=== PATIENT | male | born 1945 | race Caucasian/White ===

== ENCOUNTER 2022-09-10 07:31 | Day surgery (SDC) | payer MEDICARE ==
[2022-09-10] MEDS: Dextrose 5%-Lactated Ringers 1,000 ML IV SCH ×3 (08:16→22:48)
[2022-09-10] MEDS ORDERED: Glycopyrrolate 0.2 MG/ML 5 ML MDV ONE (08:18)
[2022-09-10] MEDS ORDERED: Propofol 200 MG/20 ML SDV ONE (08:18)
[2022-09-10] MEDS ORDERED: Rocuronium 50 MG/5 ML Vial ONE (08:18)
[2022-09-10] MEDS ORDERED: Ondansetron 4 MG/2 ML SDV ONE (08:18)
[2022-09-10] MEDS ORDERED: Dexamethasone 4 MG/ML SDV ONE (08:18)
[2022-09-10] MEDS ORDERED: fentaNYL 250 MCG/5 ML SDV ONE (08:18)
[2022-09-10] MEDS ORDERED: Neostigmine Methylsulfate 1 MG/ML 5 ML Syringe ONE (08:18)
[2022-09-10] MEDS ORDERED: Lidocaine 1% with EPINEPHrine 1:100,000 50 ML MDV ONE (08:23)
[2022-09-10] MEDS ORDERED: Bupivacaine 0.5% 50 ML MDV ONE (08:23)
[2022-09-10] MEDS ORDERED: Bupivacaine 0.5%/EPINEPHrine 1:200,000 50 ML MDV ONE (08:23)
[2022-09-10] MEDS ORDERED: Acetaminophen 500 MG Tab PO ONE (08:45)
[2022-09-10] MEDS ORDERED: Sodium Chloride 0.9% 10 ML ONE ×2 (09:46→10:10)
[2022-09-10] MEDS ORDERED: ePHEDrine 50 MG/ML SDV ONE ×2 (09:46→10:10)
[2022-09-10] MEDS ORDERED: ceFAZolin 2 GM in Sodium Chloride 0.9% 50 ML IV ONE (10:00)
[2022-09-10] MEDS ORDERED: hydrOXYzine HCL 100 MG/2 ML SDV IM PRN (11:49)
[2022-09-10] MEDS ORDERED: traMADol 50 MG Tab PO PRN (11:50)
[2022-09-10] MEDS ORDERED: Ondansetron 4 MG/2 ML SDV IVPUSH PRN (11:53)
[2022-09-10] MEDS ORDERED: HYDROmorphone 0.5 MG/0.5 ML Syringe IVPUSH PRN (12:00)
[2022-09-10] MEDS ORDERED: HYDROmorphone 1 MG/ML Syringe IV PRN (12:00)
[2022-09-10] MEDS: Acetaminophen 325 MG Tab PO SCH ×2 (12:13→18:05)
[2022-09-10] MEDS: Loratadine 10 MG Tab PO SCH (12:15)
[2022-09-10] MEDS: Lisinopril 20 MG Tab PO SCH (12:27)
[2022-09-10] MEDS: Ibuprofen 400 MG Tab PO SCH ×2 (13:16→19:30)
[2022-09-10] MEDS: ceFAZolin 2 GM in Sodium Chloride 0.9% 50 ML IV SCH (16:47)
[2022-09-10] MEDS: Tamsulosin 0.4 MG Cap.ER PO SCH ×2 (19:32→20:21)
[2022-09-11] MEDS: ceFAZolin 2 GM in Sodium Chloride 0.9% 50 ML IV SCH ×2 (00:44→07:08)
[2022-09-11] MEDS: Acetaminophen 325 MG Tab PO SCH ×2 (00:44→05:36)
[2022-09-11] MEDS: Ibuprofen 400 MG Tab PO SCH ×3 (00:45→07:13)
[2022-09-11] MEDS: Loratadine 10 MG Tab PO SCH (08:19)
[2022-09-11] MEDS: Lisinopril 20 MG Tab PO SCH (08:19)
[2022-09-11] MEDS ORDERED: Aspirin 325 MG Tab.EC PO SCH (09:00)
== END 2022-09-11 10:45 | disposition home or self-care (01) ==
LOC: JP.SDS 07:31 → JP.MS 11:33 → JP.SDS 09-11 10:45
PROVIDERS: ATTEND Surgery
DX: K40.30 Unilateral inguinal hernia, with obstruction, without gangrene, not specified as recurrent (principal); G57.82 Other specified mononeuropathies of left lower limb; E11.9 Type 2 diabetes mellitus without complications; I10 Essential (primary) hypertension; E66.9 Obesity, unspecified; Z68.26 Body mass index [BMI] 26.0-26.9, adult; Z88.0 Allergy status to penicillin; Z98.890 Other specified postprocedural states; Z79.899 Other long term (current) drug therapy; Z20.822 Contact with and (suspected) exposure to COVID-19
CPT/HCPCS: 88302; 94762; A9270-GY; C1713; C1781; J0690; J1100; J2405; J2704; J2710; J3010; J3490; J7121; U0002

== ENCOUNTER 2022-11-03 15:33 | Emergency (ER) | payer MEDICARE ==
[2022-11-03] MEDS ORDERED: Sodium Chloride 0.9% 10 ML Syringe FLUSH PRN (16:23)
[2022-11-03] MEDS ORDERED: Sodium Chloride 0.9% 500 ML IV ONE (16:30)
[2022-11-03 16:53] LABS: ESTIMATED GFR 3 mL/min (>60)
[2022-11-03 17:18] LABS: CORONAVIRUS COVID-19 NAA NEGATIVE (NEGATIVE)
[2022-11-03] MEDS ORDERED: cefTRIAXone 1 GM in Sodium Chloride 0.9% 50 ML IV ONE (17:37)
[2022-11-03] MEDS: Sodium Chloride 0.9% 1,000 ML IV SCH ×2 (18:22→21:34)
[2022-11-03] MEDS ORDERED: Sodium Chloride 0.9% 1,000 ML IV SCH ×2 (20:45→21:45)
[2022-11-03] MEDS ORDERED: Norepinephrine Bit/D5W Premix 4 MG in Premix Bag 1 BAG IV SCH (21:28)
== END 2022-11-03 22:03 ==
LOC: JP.ED 15:33
DX: N39.0 Urinary tract infection, site not specified (principal); N13.9 Obstructive and reflux uropathy, unspecified; E87.20 Acidosis, unspecified; E83.41 Hypermagnesemia; E83.39 Other disorders of phosphorus metabolism; N17.9 Acute kidney failure, unspecified; E87.5 Hyperkalemia; I10 Essential (primary) hypertension; Z86.16 Personal history of COVID-19; Z88.0 Allergy status to penicillin; Z79.82 Long term (current) use of aspirin; Z79.899 Other long term (current) drug therapy; Z87.891 Personal history of nicotine dependence
CPT/HCPCS: 0241U; 36415; 51702; 70450; 80048; 80053; 81001; 82550; 82800; 82803; 83605; 83735; 84100; 85025; 87040; 87086; 87088; 87186; 93005; 96361; 96365; 96367; 99285; J0696; J7030; J7040; 87077; 93010